=== PATIENT | female | born 1965 | race Hispanic/Latino ===

== ENCOUNTER 2018-01-29 12:33 | Outpatient (CLI) | payer OTHER | END 2018-01-29 12:34 | disposition home or self-care (01) | LOC: BICMAMMO 12:33 | PROVIDERS: ATTEND Internal Medicine | DX: Z12.31 Encounter for screening mammogram for malignant neoplasm of breast (principal) | CPT/HCPCS: 77063; 77067 ==

== ENCOUNTER 2018-06-06 13:39 | Outpatient (CLI) | payer OTHER ==
[2018-06-06 15:29] LABS: Hemoglobin 11.9 g/dL (12.0-16.0); Mean Corpuscular HGB CONC 33.8 g/dL (32.0-36.0); Mean Corpuscular Hemoglobin 35.3 pg (27.0-31.0); Mean Platelet Volume 7.4 fL (7.4-10.4); Platelet Count 176 thou/uL (130-400); Red Blood Cell (RBC) Count 3.35 mill/uL (4.20-5.40)
[2018-06-06 15:47] LABS: Anion Gap 14 mmol/L (10-20); BUN (Urea Nitrogen) 16 mg/dL (9.8-20.1); Calc. Creatinine Clearance 0 mL/min (70-130); Calcium 9.7 mg/dL (7.8-10.44); Carbon Dioxide 21 mmol/L (22-29); Chloride 108 mmol/L (98-107); Estimated GFR-MDRD 72; Glucose 89 mg/dL (70-105); Potassium 3.8 mmol/L (3.5-5.1); Sodium 139 mmol/L (136-145)
--- NOTE | 2018-06-09 17:43 | EKG ---
Test Reason : Blood Pressure : / mmHG Vent. Rate : 062 BPM Atrial Rate : 062 BPM P-R Int : 146 ms QRS Dur : 086 ms QT Int : 446 ms P-R-T Axes : 008 059 060 degrees QTc Int : 452 ms Normal sinus rhythm Cannot rule out Anterior infarct , age undetermined Abnormal ECG When compared with ECG of 12-AUG-2012 15:36, T wave inversion no longer evident in Lateral leads Confirmed by BHAKTI CRAWFORD (2) on 06/09/2018 5:43:23 PM Referred By: CLARISSE Confirmed By:BHAKTI CRAWFORD
== END 2018-06-06 13:40 | disposition home or self-care (01) ==
LOC: LABBT 13:39
PROVIDERS: ATTEND Neurological Surgery
DX: Z01.818 Encounter for other preprocedural examination (principal); M54.16 Radiculopathy, lumbar region
CPT/HCPCS: 80048; 85027; 93005; 93010

== ENCOUNTER 2018-06-12 05:40 | Day surgery (SDC) | payer OTHER ==
[2018-06-06 13:49] VITALS: BMI 35.9
[2018-06-12] MEDS ORDERED: Thrombin 5000 UNITS/5 ML VIAL ONE (06:36)
[2018-06-12] MEDS ORDERED: Bupivacaine HCl 0.5%/Epinephrine 1:200,000/PF 30 ml Vial ONE (06:36)
[2018-06-12] MEDS ORDERED: CEFAZOLIN/Water 2 GM/20 ML SYRINGE ONE ×2 (06:42→10:41)
[2018-06-12] MEDS ORDERED: Midazolam HCl 2 mg/2 ml Vial ONE (06:53)
[2018-06-12] MEDS ORDERED: Fentanyl 100 MCG/2 ML VIAL ONE ×3 (07:00→09:07)
[2018-06-12] MEDS ORDERED: SUGAMMADEX SODIUM 500 MG/5 ML VIAL ONE (08:09)
--- NOTE | 2018-06-12 09:35 | OP ---
DATE OF PROCEDURE: 06/12/2018 SURGEON: Morgan Kurtz M.D. APPLICATION SPEC: Pierre Dean PA-C. INDICATION: Pain. PREOPERATIVE DIAGNOSES: Lumbar stenosis with neurogenic claudication, lumbar radiculopathy. PROCEDURE: L5-S1 decompression. ANESTHESIA: General. PROCEDURE IN DETAIL: The patient was brought into the operating room and placed under general anesth esia. She was flipped from a supine to a prone position on the operating room table. A linear incis ion was planned over the L5-S1 segment. After prepping and draping and after an appropriate operativ e pause, the incision was created. The soft tissues were swept away from midline. Self-retaining re tractors were placed in the wound for optimal exposure. After confirming the appropriate level with C-arm fluoroscopy Adson rongeurs as well as 2, 3 and 4 mm Kerrisons used to perform decompressive the L5-S1 segment. There was a copious degree of epidural lipomatosis identified which was removed whic h was the main culprit in her stenosis. Medial facetectomies were performed bilaterally to decompres s the descending S1 nerve roots which were identified as were the exiting L5 nerve roots. After deco mpression, the wound was irrigated. Hemostasis was maintained throughout. The wound was then closed in anatomic layers and a pressure dressing was applied. There were no known procedural complication s.
[2018-06-12] MEDS ORDERED: Ketorolac Tromethamine 30 MG/ML VIAL ONE (15:09)
[2018-06-12] MEDS ORDERED: Lidocaine 1% PF 5 ML VIAL ONE (15:09)
[2018-06-12] MEDS ORDERED: PHENYLEPHRINE-NS 100 MCG/ML 10 ML SYRINGE ONE (15:09)
[2018-06-12] MEDS ORDERED: Ondansetron HCl/PF 4 MG/2 ML Vial ONE (15:09)
[2018-06-12] MEDS ORDERED: Dexamethasone 20 MG/5 ML VIAL ONE (15:09)
[2018-06-12] MEDS ORDERED: PROPOFOL 200 MG/20 ML VIAL ONE (15:09)
== END 2018-06-12 10:55 | disposition home or self-care (01) ==
LOC: SDC 05:40
PROVIDERS: ATTEND Neurological Surgery
PROC: 0ST20ZZ Resection of Lumbar Vertebral Disc, Open Approach (ICD-10-PCS; principal; 2018-06-12)
PROC: 01NB0ZZ Release Lumbar Nerve, Open Approach (ICD-10-PCS; principal; 2018-06-12)
PROC: 0SB20ZZ Excision of Lumbar Vertebral Disc, Open Approach (ICD-10-PCS; principal; 2018-06-12)
DX: E88.2 Lipomatosis, not elsewhere classified (principal); M48.062 Spinal stenosis, lumbar region with neurogenic claudication
CPT/HCPCS: 76001; 96374; 96375; J0670; J1100; J1885; J2001; J2250; J2405; J2704; J3010

== ENCOUNTER 2018-11-17 16:33 | Emergency (ER) | payer BC ==
[2018-11-17] MEDS ORDERED: Ondansetron ODT 4 MG TAB ONE (18:08)
[2018-11-17 18:30] LABS: #Eosinphils 0.1 thou/uL (0.0-0.7); #Lymphocytes 2.9 thou/uL (1.20-3.40); #Monocytes 0.5 thou/uL (0.11-0.59); #Neutrophils 2.9 thou/uL (1.40-6.50); %Basophils 0.4 % (0.0-1.0); %Eosinophils 1.9 % (0.0-10.0); %Lymphocytes 44.9 % (21.0-51.0); %Monocytes 7.2 % (0.0-10.0); %Neutrophils 45.6 % (42.0-75.0); Hemoglobin 11.4 g/dL (12.0-16.0); Mean Corpuscular HGB CONC 34.8 g/dL (32.0-36.0); Mean Corpuscular Hemoglobin 35.7 pg (27.0-31.0); Mean Platelet Volume 7.1 fL (7.4-10.4); Platelet Count 169 thou/uL (130-400); Red Blood Cell (RBC) Count 3.19 mill/uL (4.20-5.40); White Blood Cell (WBC) Count 6.4 thou/uL (4.8-10.8)
[2018-11-17 18:48] LABS: Anion Gap 13 mmol/L (10-20); BUN (Urea Nitrogen) 23 mg/dL (9.8-20.1); Calc. Creatinine Clearance 0 mL/min (70-130); Calcium 9.1 mg/dL (7.8-10.44); Carbon Dioxide 21 mmol/L (22-29); Chloride 111 mmol/L (98-107); Estimated GFR-MDRD 69; Glucose 129 mg/dL (70-105); Potassium 3.5 mmol/L (3.5-5.1); Sodium 141 mmol/L (136-145)
--- NOTE | 2018-11-17 19:12 | CT ---
CT BRAIN: HISTORY: Fall. Head injury. COMPARISON: 06/04/2005 TECHNIQUE: Noncontrast enhanced CT images of the brain obtained. Brain and bone windows obtained. FINDINGS: The brain is unremarkable. No evidence of intracranial masses, hemorrhages, strokes, or contusions s een. The ventricles are of normal size. The calvarium is unremarkable. IMPRESSION: Unremarkable CT brain. POS: [facility]
== END 2018-11-17 19:05 | disposition home or self-care (01) ==
LOC: ERS 16:33
DX: S06.0X0A Concussion without loss of consciousness, initial encounter (principal); F41.9 Anxiety disorder, unspecified; F31.9 Bipolar disorder, unspecified; F17.210 Nicotine dependence, cigarettes, uncomplicated; F17.200 Nicotine dependence, unspecified, uncomplicated; Z79.899 Other long term (current) drug therapy; Z79.82 Long term (current) use of aspirin; W19.XXXA Unspecified fall, initial encounter
CPT/HCPCS: 36415; 70450; 80048; 85025; 93005; Q0162

== ENCOUNTER 2019-02-25 10:42 | Outpatient (CLI) | payer BC ==
--- NOTE | 2019-02-25 11:39 | CT ---
CT abdomen and pelvis with IV and oral contrast HISTORY: Left lower quadrant pain. Constipation. COMPARISON: 01/23/2017. FINDINGS: The lung bases are clear. The liver, spleen, kidneys, adrenal glands, and pancreas have a n ormal CT appearance. No enlarged lymph nodes or free fluid. Mild calcification throughout the arterial structures. Degenerative changes lumbar spine. Large amount of stool throughout the colon. No wall thickening or other signs of inflammation. No sig nificant diverticula are apparent. IMPRESSION: Constipation. No acute abnormalities are demonstrated.
== END 2019-02-25 10:43 | disposition home or self-care (01) ==
LOC: BICCT 10:42
PROVIDERS: ATTEND Physician Assistant Medical
DX: R10.32 Left lower quadrant pain (principal); K59.09 Other constipation
CPT/HCPCS: 74177

== ENCOUNTER 2019-06-22 21:02 | Emergency (ER) | payer BC ==
[~2019-06-22 21:02] MED LIST: ISOVUE-370 76%-LOCM 1 ML ONE
[2019-06-22 21:29] LABS: #Basophils 0.1 thou/uL (0.0-0.2); #Eosinphils 0.2 thou/uL (0.0-0.7); #Lymphocytes 3.2 thou/uL (1.20-3.40); #Monocytes 0.5 thou/uL (0.11-0.59); #Neutrophils 5.5 thou/uL (1.40-6.50); %Basophils 0.5 % (0.0-1.0); %Eosinophils 1.6 % (0.0-10.0); %Monocytes 5.4 % (0.0-10.0); %Neutrophils 58.5 % (42.0-75.0); Hemoglobin 12.4 g/dL (12.0-16.0); Mean Corpuscular Hemoglobin 34.5 pg (27.0-31.0); Mean Platelet Volume 6.8 fL (7.4-10.4); Platelet Count 172 thou/uL (130-400); RBC Distribution Width 11.9 % (11.5-14.5); Red Blood Cell (RBC) Count 3.59 mill/uL (4.20-5.40); White Blood Cell (WBC) Count 9.4 thou/uL (4.8-10.8)
--- NOTE | 2019-06-22 21:47 | RAD ---
PORTABLE CHEST: History: Chest pain. FINDINGS: Lungs are clear. Heart and mediastinum unremarkable. Post op sternotomy changes are noted. A Mediport catheter appears adequately positioned. IMPRESSION: No acute finding. POS: [facility]
[2019-06-22 21:52] LABS: ALT (SGPT) 27 U/L (8-55); AST (SGOT) 19 U/L (5-34); Albumin 3.9 g/dL (3.5-5.0); Alkaline Phosphatase 122 U/L (40-110); Anion Gap 12 mmol/L (10-20); BUN (Urea Nitrogen) 23 mg/dL (9.8-20.1); Bilirubin, Total 0.2 mg/dL (0.2-1.2); Calc. Creatinine Clearance 0 mL/min (70-130); Calcium 9.2 mg/dL (7.8-10.44); Carbon Dioxide 23 mmol/L (22-29); Chloride 108 mmol/L (98-107); Estimated GFR-MDRD 57; Globulin 3.7 g/dL (2.4-3.5); Glucose 120 mg/dL (70-105); Potassium 3.9 mmol/L (3.5-5.1); Protein, Total 7.6 g/dL (6.0-8.3); Sodium 139 mmol/L (136-145)
[2019-06-22] MEDS ORDERED: Nitroglycerin 0.4 MG TAB 1 EACH ONE (22:25)
[2019-06-22] MEDS ORDERED: Aspirin Chewable 81 MG TAB ONE ×2 (22:25→22:26)
[2019-06-22] MEDS ORDERED: Acetaminophen 325 MG TAB ONE (23:30)
[2019-06-23 00:20] LABS: Troponin I Less than 0.010 ng/mL (< 0.028)
--- NOTE | 2019-06-23 08:01 | CT ---
PRELIMINARY REPORT/[facility]/EMERGENCY AFTER HOURS PROCEDURE: PROCEDURE INFORMATION: Exam: CT Angiography Chest With Contrast Exam date and time: 06/22/2019 11:53 PM Clinical history: 53 years old, female; Patient HX: Er20; 53 presents to ED with C/O chest pain, onse t 1 hour ago. Reports that her pain decreases when she presses on it. Pmhx of mi, and patient had a c abg done in 2011. Denies recent surgeries TECHNIQUE: Imaging protocol: Computed tomographic angiography of the chest with intravenous contrast. 3D rendering: MIP reconstructed images were created and reviewed. COMPARISON: No relevant prior studies available. FINDINGS: Pulmonary arteries: Normal. No pulmonary emboli. Aorta: Unremarkable. No aortic aneurysm. No aortic dissection. Lungs: Unremarkable. No consolidation. No masses. Pleural space: Unremarkable. No pneumothorax. No pleural effusion. Heart: There are sternal wires consistent with previous sternotomy incision and evidence of prior CAB G. The heart demonstrates diffuse enlargement. There is coronary artery calcification. Lymph nodes: Unremarkable. No enlarged lymph nodes. Bones/joints: Unremarkable. No acute fracture. Soft tissues: Unremarkable. IMPRESSION: No acute abnormality. Thank you for allowing us to participate in the care of your patient. Dictated and Authenticated by: Monie Marquez MD 06/23/2019 12:32 AM Central Time ([place] & [place]) FINAL REPORT CT PULMONARY ANGIOGRAM WITHOUT CONTRAST AND 3D POSTPROCESSING: I agree with the preliminary report given by Dr. Monie Marquez of [facility]. POS: OFF
== END 2019-06-23 00:56 | disposition home or self-care (01) ==
LOC: ERS 21:02
DX: R07.89 Other chest pain (principal); M79.7 Fibromyalgia; F41.9 Anxiety disorder, unspecified; F31.9 Bipolar disorder, unspecified; Z79.82 Long term (current) use of aspirin; Z79.52 Long term (current) use of systemic steroids; Z79.899 Other long term (current) drug therapy
CPT/HCPCS: 36415; 71045; 71275; 80053; 84484; 85025; 85379; 93005; Q9966

== ENCOUNTER 2019-07-24 09:06 | Outpatient (CLI) | payer BC ==
--- NOTE | 2019-07-24 09:46 | MMO ---
Bilateral MAMMO Bilat Screen [facility]. CLINICAL HISTORY: Patient is 53 years old and is seen for screening. The patient has no family history of breast cancer. The patient has a history of ovarian cancer at age 50. VIEWS: The views performed were: bilateral craniocaudal with tomosynthesis and bilateral mediolateral oblique with tomosynthesis. FILMS COMPARED: The present examination has been compared to prior imaging studies performed at [facility] on 11/23/2015 and 01/29/2018. This study has been interpreted with the assistance of computer-aided detection. MAMMOGRAM FINDINGS: There are scattered fibroglandular densities. There are no suspicious masses, suspicious calcifications, or new areas of architectural distortion. IMPRESSION: THERE IS NO MAMMOGRAPHIC EVIDENCE OF MALIGNANCY. A ROUTINE FOLLOW-UP MAMMOGRAM IN 1 YEAR IS RECOMMENDED. THE RESULTS OF THIS EXAM WERE SENT TO THE PATIENT. ACR BI-RADS Category 1 - Negative MAMMOGRAPHY NOTE: 1. A negative mammogram report should not delay a biopsy if a dominant of clinically suspicious mass is present. 2. Approximately 10% to 15% of breast cancers are not detected by mammography. 3. Adenosis and dense breasts may obscure an underlying neoplasm. Reported by: Dyan FAYE Electonically Signed: [id number]
== END 2019-07-24 09:07 | disposition home or self-care (01) ==
LOC: BICMAMMO 09:06
PROVIDERS: ATTEND Internal Medicine
DX: Z12.31 Encounter for screening mammogram for malignant neoplasm of breast (principal); Z85.43 Personal history of malignant neoplasm of ovary
CPT/HCPCS: 77063; 77067

== ENCOUNTER 2020-05-19 08:02 | Outpatient (CLI) | payer BC ==
--- NOTE | 2020-05-19 09:06 | CT ---
CT ABDOMEN AND PELVIS WITH IV CONTRAST 05/19/2020 CLINICAL INFORMATION: Ovarian cancer. Rising CEA 125. History of prior hysterectomy and chemotherapy. COMPARISON: 02/25/2019 Technique: Multiple contiguous axial CT images are obtained through the abdomen and pelvis with IV contrast. Cor onal reformatted images are provided. FINDINGS: Lower Chest: Minimal atelectasis is present at each lung base. No pulmonary nodule, mass, or pleural effusion is identified. Vessels: Vascular calcifications are seen in the abdominal aorta. Abdomen: Portal vein:Patent Gallbladder: Within normal limits for CT imaging. Liver: within normal limits. Spleen: within normal limits. Pancreas: within normal limits. Adrenals: within normal limits. Kidneys: within normal limits. Bowel: Colonic diverticulosis involving sigmoid colon. Loops of small bowel are normal in caliber. Appendix: The appendix is visualized and normal in caliber. Peritoneum: No ascites or free air; no fluid collection. Mesentery and Retroperitoneum: No enlarged mesenteric or retroperitoneal lymph nodes. Abdominal Wall: Small fat-containing supraumbilical hernia. Pelvis: Reproductive Organs: Evidence of hysterectomy. Bladder: Decompressed and not well evaluated. Bones: Degenerative changes are present, but no suspicious lytic or sclerotic osseous lesions are edwina ntified. IMPRESSION: 1. No CT findings to suggest metastatic disease. 2. Hysterectomy. 3. Colonic diverticulosis.
[2020-05-19] MEDS ORDERED: Iopamidol-370 76% 500 ML 1 ML ONE (13:30)
== END 2020-05-19 08:03 | disposition home or self-care (01) ==
LOC: BICCT 08:02
PROVIDERS: ATTEND Internal Medicine Hematology & Oncology
DX: C56.2 Malignant neoplasm of left ovary (principal); R97.1 Elevated cancer antigen 125 [CA 125]; Z90.710 Acquired absence of both cervix and uterus; K57.30 Diverticulosis of large intestine without perforation or abscess without bleeding
CPT/HCPCS: 74177; Q9967

== ENCOUNTER 2020-08-01 05:02 | Emergency (ER) | payer BC ==
--- NOTE | 2020-08-01 10:12 | CT ---
CT BRAIN WITHOUT CONTRAST: INDICATIONS: History of fall with possible head injury and intoxication. COMPARISON: Prior CT brain dated 11/17/2018. FINDINGS: Mild chronic small vessel white matter ischemic change is stable. The septum pellucidum and third masha tricle are midline. No acute infarct, hemorrhage or hydrocephalus is present. The mastoid air cells a re clear. Defect involving the left medial orbital wall is stable. The skull is intact. There is a co ntusion involving the right parietal scalp. IMPRESSION: No acute intracranial abnormality. POS: [facility]
--- NOTE | 2020-08-01 10:13 | CT ---
CT CERVICAL SPINE WITHOUT CONTRAST: INDICATIONS: Fall with neck injury. COMPARISON: None. FINDINGS: There is moderate multilevel cervical spondylosis. No acute fracture or subluxation is evident. The c raniocervical junction appears within normal limits. The lung apices are clear. There is a right ches t wall port in place. The prevertebral soft tissues appear within normal limits. IMPRESSION: 1. No acute fracture or subluxation demonstrated. 2. Moderate cervical spondylosis. POS: [facility]
== END 2020-08-01 08:39 | disposition home or self-care (01) ==
LOC: ERS 05:02
DX: S09.90XA Unspecified injury of head, initial encounter (principal); F10.129 Alcohol abuse with intoxication, unspecified; Z79.899 Other long term (current) drug therapy; Z79.82 Long term (current) use of aspirin; F31.9 Bipolar disorder, unspecified; F41.9 Anxiety disorder, unspecified; Z87.891 Personal history of nicotine dependence; W01.0XXA Fall on same level from slipping, tripping and stumbling without subsequent striking against object, initial encounter
CPT/HCPCS: 70450; 72125

== ENCOUNTER 2020-11-30 10:45 | Outpatient (CLI) | payer BC | END 2020-11-30 10:46 | disposition home or self-care (01) | LOC: BICMAMMO 10:45 | PROVIDERS: ATTEND Internal Medicine | DX: Z12.31 Encounter for screening mammogram for malignant neoplasm of breast (principal); N64.89 Other specified disorders of breast; Z85.43 Personal history of malignant neoplasm of ovary | CPT/HCPCS: 77063; 77067 ==

== ENCOUNTER 2020-12-01 10:24 | Outpatient (CLI) | payer BC ==
[~2020-12-01 10:24] MED LIST changes: -ISOVUE-370 76%-LOCM 1 ML ONE; +Iopamidol-370 76% 500 ML 1 ML ONE
== END 2020-12-01 10:25 | disposition home or self-care (01) ==
LOC: BICCT 10:24
PROVIDERS: ATTEND Internal Medicine Hematology & Oncology
DX: C56.2 Malignant neoplasm of left ovary (principal); R97.1 Elevated cancer antigen 125 [CA 125]; R59.0 Localized enlarged lymph nodes
CPT/HCPCS: 74177; Q9967

== ENCOUNTER 2020-12-13 10:50 | Outpatient (CLI) | payer BC | END 2020-12-13 10:51 | disposition home or self-care (01) | LOC: BICMAMMO 10:50 | PROVIDERS: ATTEND Internal Medicine | DX: R92.2 Inconclusive mammogram (principal) | CPT/HCPCS: G0279 ==

== ENCOUNTER 2021-01-21 10:33 | Day surgery (SDC) | payer BC ==
[2021-01-21] MEDS ORDERED: Sodium Chloride 0.9% 30 ML ONE (11:10)
[2021-01-21] MEDS ORDERED: diphenhydrAMINE 25 MG CAP PO SCH (12:00)
[2021-01-21] MEDS ORDERED: Acetaminophen 500 MG TAB PO SCH (12:00)
[2021-01-21 13:22] VITALS: BP 136/72; TEMP 98
== END 2021-01-21 13:23 | disposition home or self-care (01) ==
LOC: ONC/OP 10:33
PROVIDERS: ATTEND Internal Medicine Hematology & Oncology
PROC: 30233R1 Transfusion of Nonautologous Platelets into Peripheral Vein, Percutaneous Approach (ICD-10-PCS; principal; 2021-01-21)
DX: D69.6 Thrombocytopenia, unspecified (principal); D64.9 Anemia, unspecified; Z88.8 Allergy status to other drugs, medicaments and biological substances
CPT/HCPCS: 36430; 86850; 86900; 86901; J1642; P9035

== ENCOUNTER 2021-02-03 08:28 | Day surgery (SDC) | payer BC ==
[2021-02-03] MEDS ORDERED: Sodium Chloride 0.9% 20 ML ONE (09:13)
[2021-02-03] MEDS ORDERED: Acetaminophen 500 MG TAB PO PRN (09:13)
[2021-02-03] MEDS ORDERED: diphenhydrAMINE 25 MG CAP PO PRN (09:13)
[2021-02-03 14:32] VITALS: BP 142/69; TEMP 97.6
== END 2021-02-03 14:32 | disposition home or self-care (01) ==
LOC: ONC/OP 08:28
PROVIDERS: ATTEND Internal Medicine Hematology & Oncology
PROC: 30233N1 Transfusion of Nonautologous Red Blood Cells into Peripheral Vein, Percutaneous Approach (ICD-10-PCS; principal; 2021-02-03)
DX: D64.9 Anemia, unspecified (principal); D69.6 Thrombocytopenia, unspecified; Z88.8 Allergy status to other drugs, medicaments and biological substances
CPT/HCPCS: 36430; 86850; 86900; 86901; J1642; P9016

== ENCOUNTER 2021-03-15 08:17 | Day surgery (SDC) | payer BC ==
[2021-03-15] MEDS ORDERED: Acetaminophen 500 MG TAB PO SCH (08:45)
[2021-03-15] MEDS ORDERED: diphenhydrAMINE 25 MG CAP PO SCH (08:45)
[2021-03-15] MEDS ORDERED: Sodium Chloride 0.9% 20 ML ONE (09:10)
[2021-03-15 13:28] VITALS: BP 175/88; TEMP 97.7
== END 2021-03-15 13:28 | disposition home or self-care (01) ==
LOC: ONC/OP 08:17
PROVIDERS: ATTEND Internal Medicine Hematology & Oncology
PROC: 30233N1 Transfusion of Nonautologous Red Blood Cells into Peripheral Vein, Percutaneous Approach (ICD-10-PCS; principal; 2021-03-15)
DX: D64.9 Anemia, unspecified (principal); Z88.8 Allergy status to other drugs, medicaments and biological substances
CPT/HCPCS: 36430; 86850; 86900; 86901; J1642; P9016; Q0163

== ENCOUNTER 2021-04-18 13:54 | Inpatient (IN) | payer BC ==
[2021-04-18] MEDS ORDERED: Famotidine/PF 20 mg/2ml Vial ONE (14:00)
[2021-04-18] MEDS ORDERED: EPINEPHrine 1 MG/ML VIAL ONE (14:00)
[2021-04-18 14:35] LABS: Hemoglobin 8.5 g/dL (12.0-16.0); Mean Corpuscular HGB CONC 35.5 g/dL (32.0-36.0); Mean Corpuscular Hemoglobin 35.4 pg (27.0-31.0); Mean Corpuscular Volume 99.7 fL (78.0-98.0); Mean Platelet Volume 9.1 fL (7.4-10.4); Platelet Count 59 thou/uL (130-400); RBC Distribution Width 19.1 % (11.5-14.5); White Blood Cell (WBC) Count 4.2 thou/uL (4.8-10.8)
[2021-04-18 14:53] LABS: Anisocytosis SLIGHT = 6-15 cells (100X) (0-5/hpf); Band 18 % (5-11); Lymphocytes 54 % (21-51); MDiff Complete? YES; Macrocytosis SLIGHT = 6-15 cells (100X) (0-5/hpf); Monocytes 3 % (0-10); Neutrophil 11 % (42-75); Platelet Morphology Comment Appears Decreased; Polychromasia MODERATE = 3-4 cells (100X) (0-2/hpf); Reactive Lymphocytes 14 % (0-10)
[2021-04-18 14:59] LABS: ALT (SGPT) 26 U/L (8-55); AST (SGOT) 25 U/L (5-34); Albumin 3.1 g/dL (3.5-5.0); Alkaline Phosphatase 100 U/L (40-110); Anion Gap 11 mmol/L (10-20); BUN (Urea Nitrogen) 22 mg/dL (9.8-20.1); Bilirubin, Total 0.4 mg/dL (0.2-1.2); CK (CPK) 71 U/L (29-168); Calc. Creatinine Clearance 0 mL/min (70-130); Calcium 7.8 mg/dL (7.8-10.44); Carbon Dioxide 17 mmol/L (22-29); Chloride 112 mmol/L (98-107); Globulin 3.8 g/dL (2.4-3.5); Glucose 122 mg/dL (70-105); Lipase 79 U/L (8-78); Potassium 3.6 mmol/L (3.5-5.1); Protein, Total 6.9 g/dL (6.0-8.3); Sodium 136 mmol/L (136-145)
[2021-04-18] MEDS ORDERED: EPINEPHrine 1 mg/ml MDV (1ml Charge) IM PRN (16:14)
[2021-04-18] MEDS: Famotidine 20 MG TAB PO SCH ×2 (17:56→20:22)
[2021-04-18] MEDS: Sodium Chloride 0.9% 1,000 ML IV SCH (17:56)
[2021-04-18 19:23] VITALS: BMI 38.0
[2021-04-18] MEDS ORDERED: Dexamethasone 10 MG in Sodium Chloride 0.9% 50 ML IVPB SCH (20:00)
[2021-04-18] MEDS ORDERED: Acetaminophen 325 MG TAB PO PRN (20:04)
[2021-04-18] MEDS ORDERED: Atorvastatin Calcium 20 MG TAB PO SCH (21:45)
[2021-04-19] MEDS: Sodium Chloride 0.9% 1,000 ML IV SCH (07:12)
[2021-04-19 08:19] LABS: SARS-CoV-2 PCR by NAA Not Detected (NotDetected)
[2021-04-19 08:36] LABS: #Lymphocytes 1.4 thou/uL (1.20-3.40); #Monocytes 0.4 thou/uL (0.11-0.59); #Neutrophils 3.5 thou/uL (1.40-6.50); %Monocytes 7.9 % (0.0-10.0); %Neutrophils 66.1 % (42.0-75.0); Mean Corpuscular HGB CONC 34.3 g/dL (32.0-36.0); Mean Corpuscular Hemoglobin 34.6 pg (27.0-31.0); Mean Platelet Volume 8.7 fL (7.4-10.4); Platelet Count 56 thou/uL (130-400); RBC Distribution Width 19.2 % (11.5-14.5); Red Blood Cell (RBC) Count 2.02 mill/uL (4.20-5.40); White Blood Cell (WBC) Count 5.3 thou/uL (4.8-10.8)
[2021-04-19] MEDS ORDERED: Acetaminophen 500 MG TAB PO PRN (09:19)
[2021-04-19] MEDS ORDERED: diphenhydrAMINE 25 MG CAP PO PRN (09:20)
[2021-04-19] MEDS: Famotidine 20 MG TAB PO SCH ×2 (09:45→21:14)
[2021-04-19] MEDS: traMADol HCl 50 MG TAB PO PRN ×2 (14:52→21:08)
[2021-04-19] MEDS ORDERED: Lorazepam 2 MG/ML VIAL SLOW IVP PRN (14:57)
[2021-04-19] MEDS ORDERED: Dexamethasone 10 MG in Sodium Chloride 0.9% 50 ML IVPB SCH (15:00)
[2021-04-19] MEDS ORDERED: Furosemide 40 MG/4 ML VIAL SLOW IVP SCH (15:30)
[2021-04-19 15:52] LABS: #Lymphocytes 1.8 thou/uL (1.20-3.40); #Monocytes 0.8 thou/uL (0.11-0.59); %Basophils 0.2 % (0.0-1.0); %Eosinophils 0.1 % (0.0-10.0); %Lymphocytes 26.5 % (21.0-51.0); %Monocytes 11.9 % (0.0-10.0); %Neutrophils 61.3 % (42.0-75.0); Hemoglobin 9.6 g/dL (12.0-16.0); Mean Corpuscular HGB CONC 35.8 g/dL (32.0-36.0); Mean Corpuscular Hemoglobin 35.1 pg (27.0-31.0); Mean Corpuscular Volume 97.9 fL (78.0-98.0); Mean Platelet Volume 8.8 fL (7.4-10.4); Platelet Count 50 thou/uL (130-400); Red Blood Cell (RBC) Count 2.73 mill/uL (4.20-5.40); White Blood Cell (WBC) Count 6.6 thou/uL (4.8-10.8)
[2021-04-19 15:59] LABS: Bacteria/HPF None Seen HPF (None Seen); Bilirubin Negative (Negative); Blood, Urine Negative (Negative); Clarity Clear (Clear); Glucose, Urine (Dipstick) Normal (Negative); Ketone, Urine Negative (Negative); Leukocyte Negative Leu/uL (Negative); Nitrite Negative (Negative); Protein, Urine (Dipstick) Negative (Neg-Trace); RBC/HPF 0-3 HPF (0-3); Squamous Epithelial 0-3 HPF (0-3); Urobilinogen Normal mg/dL (Less than 2); WBC/HPF 0-3 HPF (0-3)
[2021-04-19 16:03] LABS: Urine Culture Reflex No No
[2021-04-19] MEDS ORDERED: Atorvastatin Calcium 20 MG TAB PO SCH (21:00)
[2021-04-19] MEDS ORDERED: Meloxicam 15 MG TAB PO SCH (21:00)
[2021-04-19] MEDS ORDERED: Aspirin Chewable 81 MG TAB PO SCH (21:00)
[2021-04-19] MEDS ORDERED: Non-Formulary Item 1 EACH (Carvedilol [Carvedilol] 12.5 MG Tablet) PO SCH (21:00)
[2021-04-19] MEDS ORDERED: Topiramate 100 MG TAB PO SCH (21:00)
[2021-04-19] MEDS: Carvedilol 6.25 MG TAB PO SCH (21:14)
[2021-04-20] MEDS: Famotidine 20 MG TAB PO SCH (09:21)
[2021-04-20] MEDS: Carvedilol 6.25 MG TAB PO SCH (09:21)
[2021-04-20 10:59] LABS: #Lymphocytes 1.7 thou/uL (1.20-3.40); #Monocytes 0.2 thou/uL (0.11-0.59); #Neutrophils 3.5 thou/uL (1.40-6.50); %Basophils 0.6 % (0.0-1.0); %Eosinophils 0.1 % (0.0-10.0); %Lymphocytes 32.3 % (21.0-51.0); %Monocytes 2.7 % (0.0-10.0); %Neutrophils 64.3 % (42.0-75.0); Hemoglobin 10.4 g/dL (12.0-16.0); Mean Corpuscular HGB CONC 35.3 g/dL (32.0-36.0); Mean Corpuscular Hemoglobin 34.8 pg (27.0-31.0); Mean Corpuscular Volume 98.5 fL (78.0-98.0); Mean Platelet Volume 8.6 fL (7.4-10.4); Platelet Count 51 thou/uL (130-400); RBC Distribution Width 17.8 % (11.5-14.5); White Blood Cell (WBC) Count 5.4 thou/uL (4.8-10.8)
[2021-04-20 11:13] LABS: Anion Gap 12 mmol/L (10-20); BUN (Urea Nitrogen) 23 mg/dL (9.8-20.1); Calc. Creatinine Clearance 105 mL/min (70-130); Calcium 8.8 mg/dL (7.8-10.44); Carbon Dioxide 19 mmol/L (22-29); Chloride 110 mmol/L (98-107); Glucose 139 mg/dL (70-105); Potassium 4.2 mmol/L (3.5-5.1); Sodium 137 mmol/L (136-145)
[2021-04-20 12:32] VITALS: TEMP 97.5
[2021-04-20 15:44] VITALS: BP 126/69
== END 2021-04-20 17:55 | disposition home or self-care (01) | DRG 915 ==
LOC: ERS 13:54 → ONC 15:54 → OBSVTOIN 04-19 15:19 → 2NO 04-19 17:33
PROVIDERS: ADMIT Internal Medicine; ATTEND Internal Medicine
PROC: 30233N1 Transfusion of Nonautologous Red Blood Cells into Peripheral Vein, Percutaneous Approach (ICD-10-PCS; principal; 2021-04-19)
DX: T88.6XXA Anaphylactic reaction due to adverse effect of correct drug or medicament properly administered, initial encounter (principal); I46.9 Cardiac arrest, cause unspecified; D61.818 Other pancytopenia; I50.22 Chronic systolic (congestive) heart failure; C56.9 Malignant neoplasm of unspecified ovary; T45.1X5A Adverse effect of antineoplastic and immunosuppressive drugs, initial encounter; F31.9 Bipolar disorder, unspecified; I25.10 Atherosclerotic heart disease of native coronary artery without angina pectoris; F41.9 Anxiety disorder, unspecified; Z20.822 Contact with and (suspected) exposure to COVID-19; R06.03 Acute respiratory distress; E87.71 Transfusion associated circulatory overload; Z95.1 Presence of aortocoronary bypass graft; Z88.8 Allergy status to other drugs, medicaments and biological substances; Z79.82 Long term (current) use of aspirin; Z79.899 Other long term (current) drug therapy; Z90.710 Acquired absence of both cervix and uterus; Z98.51 Tubal ligation status; Z87.891 Personal history of nicotine dependence
CPT/HCPCS: 36415; 36430; 71045; 71275; 80048; 80053; 81001; 82248; 82550; 83615; 83690; 83880; 84100; 84484; 84550; 85025; 85379; 86304; 86850; 86900; 86901; 93005; 93010; 93306; 96372; 96374; 96375; G0378; J0171; J1100; J1642; J1940; P9016; Q9967; S0028; U0003; U0005

== ENCOUNTER 2021-05-13 12:31 | Day surgery (SDC) | payer BC ==
[2021-05-13] MEDS ORDERED: Acetaminophen 500 MG TAB PO SCH (13:00)
[2021-05-13] MEDS: diphenhydrAMINE 25 MG CAP PO SCH ×2 (13:31→13:33)
[2021-05-13 16:01] VITALS: BP 121/70; TEMP 97
== END 2021-05-13 16:01 | disposition home or self-care (01) ==
LOC: ONC/OP 12:31
PROVIDERS: ATTEND Internal Medicine Hematology & Oncology
PROC: 30233N1 Transfusion of Nonautologous Red Blood Cells into Peripheral Vein, Percutaneous Approach (ICD-10-PCS; principal; 2021-05-13)
DX: D64.9 Anemia, unspecified (principal); D69.6 Thrombocytopenia, unspecified; Z88.8 Allergy status to other drugs, medicaments and biological substances
CPT/HCPCS: 36430; 86850; 86900; 86901; P9016

== ENCOUNTER 2021-06-06 10:18 | Day surgery (SDC) | payer BC ==
[2021-06-06] MEDS ORDERED: Acetaminophen 500 MG TAB PO PRN (10:47)
[2021-06-06] MEDS ORDERED: diphenhydrAMINE 25 MG CAP PO PRN (10:49)
[2021-06-06] MEDS ORDERED: Sodium Chloride 0.9% 20 ML ONE (10:52)
[2021-06-06 13:43] VITALS: BP 144/71; TEMP 98.1
== END 2021-06-06 13:45 | disposition home or self-care (01) ==
LOC: ONC/OP 10:18
PROVIDERS: ATTEND Internal Medicine Hematology & Oncology
PROC: 30233N1 Transfusion of Nonautologous Red Blood Cells into Peripheral Vein, Percutaneous Approach (ICD-10-PCS; principal; 2021-06-06)
DX: D64.9 Anemia, unspecified (principal); D69.6 Thrombocytopenia, unspecified; Z88.8 Allergy status to other drugs, medicaments and biological substances
CPT/HCPCS: 36430; 86850; 86900; 86901; J1642; P9016

== ENCOUNTER 2021-07-07 08:38 | Outpatient (CLI) | payer BC | END 2021-07-07 08:39 | disposition home or self-care (01) | LOC: BICCT 08:38 → CT 08:39 | PROVIDERS: ATTEND Internal Medicine Hematology & Oncology | DX: C56.2 Malignant neoplasm of left ovary (principal) | CPT/HCPCS: 74177; 82565 ==

== ENCOUNTER 2021-07-15 09:43 | Day surgery (SDC) | payer BC ==
[2021-07-15] MEDS ORDERED: diphenhydrAMINE 25 MG CAP PO SCH (10:00)
[2021-07-15] MEDS ORDERED: Acetaminophen 500 MG TAB PO SCH (10:00)
[2021-07-15] MEDS ORDERED: Sodium Chloride 0.9% 20 ML ONE (10:28)
[2021-07-15 13:27] VITALS: BP 134/61; TEMP 98.1
== END 2021-07-15 13:41 | disposition home or self-care (01) ==
LOC: ONC/OP 09:43
PROVIDERS: ATTEND Internal Medicine Hematology & Oncology
PROC: 30233N1 Transfusion of Nonautologous Red Blood Cells into Peripheral Vein, Percutaneous Approach (ICD-10-PCS; principal; 2021-07-15)
DX: D64.9 Anemia, unspecified (principal); D69.6 Thrombocytopenia, unspecified; Z88.8 Allergy status to other drugs, medicaments and biological substances
CPT/HCPCS: 36430; 86850; 86900; 86901; J1642; P9016

== ENCOUNTER 2021-09-07 16:10 | Observation (INO) | payer BC ==
[2021-09-07] MEDS ORDERED: Lidocaine 1% (PF) 30 ML VIAL ONE (16:44)
[2021-09-07 16:58] LABS: #Lymphocytes 1.7 thou/uL (1.20-3.40); #Monocytes 0.4 thou/uL (0.11-0.59); #Neutrophils 4.3 thou/uL (1.40-6.50); %Basophils 0.4 % (0.0-1.0); %Eosinophils 0.7 % (0.0-10.0); %Monocytes 6.7 % (0.0-10.0); %Neutrophils 66.2 % (42.0-75.0); Hemoglobin 11.5 g/dL (12.0-16.0); Mean Corpuscular HGB CONC 35.5 g/dL (32.0-36.0); Mean Corpuscular Hemoglobin 39.7 pg (27.0-31.0); Mean Platelet Volume 7.9 fL (7.4-10.4); Platelet Count 81 thou/uL (130-400); RBC Distribution Width 18.2 % (11.5-14.5); Red Blood Cell (RBC) Count 2.91 mill/uL (4.20-5.40); White Blood Cell (WBC) Count 6.5 thou/uL (4.8-10.8)
[2021-09-07] MEDS ORDERED: Acetaminophen 500 MG TAB ONE (17:20)
[2021-09-07] MEDS ORDERED: Cefepime 2 GM VIAL ONE (17:21)
[2021-09-07] MEDS ORDERED: Vancomycin 1 GM/200 ML BAG ONE (17:21)
[2021-09-07 17:26] LABS: ALT (SGPT) 39 U/L (8-55); AST (SGOT) 51 U/L (5-34); Albumin 4.2 g/dL (3.5-5.0); Alkaline Phosphatase 90 U/L (40-110); Anion Gap 16 mmol/L (10-20); BUN (Urea Nitrogen) 18 mg/dL (9.8-20.1); Bilirubin, Total 0.6 mg/dL (0.2-1.2); Calc. Creatinine Clearance 0 mL/min (70-130); Calcium 9.3 mg/dL (7.8-10.44); Carbon Dioxide 18 mmol/L (22-29); Chloride 108 mmol/L (98-107); Globulin 4.9 g/dL (2.4-3.5); Glucose 101 mg/dL (70-105); Potassium 4.8 mmol/L (3.5-5.1); Protein, Total 9.1 g/dL (6.0-8.3); Sodium 137 mmol/L (136-145)
[2021-09-07 17:27] LABS: Prothrombin Time 13.5 sec (12.0-14.7)
[2021-09-07 17:28] LABS: PTT 29.5 sec (22.9-36.1)
[2021-09-07] MEDS ORDERED: Ondansetron ODT 4 MG TAB PO PRN (19:13)
[2021-09-07] MEDS ORDERED: Ondansetron PF 4 MG/2 ML Vial IVP PRN (19:13)
[2021-09-07] MEDS ORDERED: Sodium Chloride 0.9% 1,000 ML IV SCH (19:15)
[2021-09-07] MEDS ORDERED: Electrolyte Replacement Protocol 1 EACH FS SCH (19:15)
[2021-09-07] MEDS ORDERED: Morphine 4 MG/ML VIAL SLOW IVP PRN (19:26)
[2021-09-07] MEDS ORDERED: Atorvastatin Calcium 20 MG TAB PO SCH (21:00)
[2021-09-07 21:41] VITALS: BMI 32.8
[2021-09-07] MEDS ORDERED: Melatonin 3 MG TAB PO SCH (22:00)
[2021-09-07] MEDS: Carvedilol 6.25 MG TAB PO SCH (22:38)
[2021-09-08] MEDS: traMADol HCl 50 MG TAB PO PRN ×2 (04:12→16:09)
[2021-09-08] MEDS ORDERED: Cefepime 2 GM in Sodium Chloride 0.9% 100 ML IVPB SCH ×2 (06:00→14:00)
[2021-09-08 06:32] LABS: Anion Gap 10 mmol/L (10-20); BUN (Urea Nitrogen) 15 mg/dL (9.8-20.1); Calc. Creatinine Clearance 100 mL/min (70-130); Carbon Dioxide 17 mmol/L (22-29); Chloride 111 mmol/L (98-107); Glucose 109 mg/dL (70-105); Magnesium 1.6 mg/dL (1.6-2.6); Potassium 3.7 mmol/L (3.5-5.1); Sodium 134 mmol/L (136-145)
[2021-09-08] MEDS ORDERED: Magnesium 2 GM/50 ML 2 GM in Premix Bag 1 BAG IVPB SCH (07:15)
[2021-09-08 08:58] LABS: #Lymphocytes 1.7 thou/uL (1.20-3.40); #Monocytes 0.5 thou/uL (0.11-0.59); #Neutrophils 2.6 thou/uL (1.40-6.50); %Basophils 0.3 % (0.0-1.0); %Eosinophils 0.9 % (0.0-10.0); %Lymphocytes 35.9 % (21.0-51.0); %Monocytes 9.4 % (0.0-10.0); %Neutrophils 53.6 % (42.0-75.0); Hemoglobin 8.8 g/dL (12.0-16.0); MDiff Complete? YES; Macrocytosis SLIGHT = 6-15 cells (100X) (0-5/hpf); Mean Corpuscular HGB CONC 33.3 g/dL (32.0-36.0); Mean Corpuscular Hemoglobin 38.1 pg (27.0-31.0); Mean Platelet Volume 7.8 fL (7.4-10.4); Platelet Count 61 thou/uL (130-400); Platelet Morphology Comment Appears Decreased; Polychromasia SLIGHT = 2-3 cells (100X) (0-2/hpf); RBC Distribution Width 18.4 % (11.5-14.5); White Blood Cell (WBC) Count 4.8 thou/uL (4.8-10.8)
[2021-09-08] MEDS ORDERED: Vancomycin 1 GM in Premix Bag 1 BAG IVPB SCH (09:00)
[2021-09-08] MEDS: Carvedilol 6.25 MG TAB PO SCH (09:03)
[2021-09-08] MEDS ORDERED: Vancomycin HCl 1.5 GM in Sodium Chloride 0.9% 250 ML 300 ML IVPB SCH ×2 (10:00→21:00)
[2021-09-08 11:27] LABS: SARS-CoV-2 PCR by NAA Not Detected (NotDetected)
[2021-09-08 12:32] VITALS: BP 118/57; TEMP 97.6
== END 2021-09-08 16:46 | disposition home or self-care (01) ==
LOC: ERS 16:10 → MSONC 17:57
PROVIDERS: ADMIT Internal Medicine; ATTEND Internal Medicine
DX: A41.9 Sepsis, unspecified organism (principal); L02.416 Cutaneous abscess of left lower limb; D61.818 Other pancytopenia; C56.9 Malignant neoplasm of unspecified ovary; I50.22 Chronic systolic (congestive) heart failure; I25.10 Atherosclerotic heart disease of native coronary artery without angina pectoris; G62.9 Polyneuropathy, unspecified; M79.7 Fibromyalgia; Z86.74 Personal history of sudden cardiac arrest; Z87.891 Personal history of nicotine dependence; Z79.1 Long term (current) use of non-steroidal anti-inflammatories (NSAID); Z79.82 Long term (current) use of aspirin; Z79.899 Other long term (current) drug therapy; Z88.8 Allergy status to other drugs, medicaments and biological substances; Z95.1 Presence of aortocoronary bypass graft; Z20.822 Contact with and (suspected) exposure to COVID-19
CPT/HCPCS: 10061; 36415; 80048; 80053; 83605; 83735; 85025; 85610; 85730; 87040; 87070; 87077; 87205; 93005; 94760; 96365; 96366; 96367; 96368; 96375; G0378; J0692; J2001; J2270; J3370; J3475; J3490; J7050; U0003; U0005

== ENCOUNTER 2021-09-22 09:27 | Outpatient (CLI) | payer BC | END 2021-09-22 09:28 | disposition home or self-care (01) | LOC: CT 09:27 | PROVIDERS: ATTEND Internal Medicine Hematology & Oncology | DX: C56.2 Malignant neoplasm of left ovary (principal); R59.0 Localized enlarged lymph nodes; Z90.710 Acquired absence of both cervix and uterus | CPT/HCPCS: 74177 ==

== ENCOUNTER 2022-02-06 08:04 | Outpatient (CLI) | payer BC ==
[2022-02-06] MEDS ORDERED: Iopamidol 370 76% 100 ML VIAL ONE (14:51)
== END 2022-02-06 08:05 | disposition home or self-care (01) ==
LOC: CT 08:04
PROVIDERS: ATTEND Internal Medicine Hematology & Oncology
DX: C56.2 Malignant neoplasm of left ovary (principal); R59.0 Localized enlarged lymph nodes; Z79.899 Other long term (current) drug therapy
CPT/HCPCS: 74177; Q9967

== ENCOUNTER 2022-02-17 10:06 | Outpatient (CLI) | payer BC | END 2022-02-17 10:07 | disposition home or self-care (01) | LOC: BICMAMMO 10:06 | PROVIDERS: ATTEND Internal Medicine | DX: Z12.31 Encounter for screening mammogram for malignant neoplasm of breast (principal); Z85.43 Personal history of malignant neoplasm of ovary | CPT/HCPCS: 77063; 77067 ==

== ENCOUNTER 2022-03-28 14:03 | Outpatient (CLI) | payer BC | END 2022-03-28 14:04 | disposition home or self-care (01) | LOC: BICCT 14:03 | PROVIDERS: ATTEND Internal Medicine Hematology & Oncology | DX: C56.9 Malignant neoplasm of unspecified ovary (principal) | CPT/HCPCS: 74177; Q9967 ==

== ENCOUNTER 2022-08-02 11:03 | Day surgery (SDC) | payer BC ==
[2022-08-02] MEDS ORDERED: diphenhydrAMINE 25 MG CAP ONE (11:33)
[2022-08-02] MEDS ORDERED: Acetaminophen 500 MG TAB ONE (11:33)
[2022-08-02] MEDS ORDERED: diphenhydrAMINE 25 MG CAP PO SCH (12:30)
[2022-08-02] MEDS ORDERED: Acetaminophen 500 MG TAB PO SCH (12:30)
[2022-08-02 14:51] VITALS: BP 121/58; TEMP 98.1
== END 2022-08-02 14:50 | disposition home or self-care (01) ==
LOC: ONC/OP 11:03
PROVIDERS: ATTEND Nurse Practitioner Family
PROC: 30233N1 Transfusion of Nonautologous Red Blood Cells into Peripheral Vein, Percutaneous Approach (ICD-10-PCS; principal; 2022-08-02)
DX: D64.9 Anemia, unspecified (principal); D69.6 Thrombocytopenia, unspecified; Z88.8 Allergy status to other drugs, medicaments and biological substances
CPT/HCPCS: 36430; 86850; 86900; 86901; J1642; P9016

== ENCOUNTER 2023-08-28 09:56 | Emergency (ER) | payer BC ==
[2023-08-28] MEDS ORDERED: Ondansetron PF 4 MG/2 ML Vial ONE (10:31)
[2023-08-28] MEDS ORDERED: Morphine 4 MG/ML VIAL ONE (10:31)
[2023-08-28 10:42] LABS: #Eosinphils 0.1 thou/uL (0.0-0.7); #Neutrophils 4.9 thou/uL (1.40-6.50); %Basophils 0.2 % (0.0-1.0); %Eosinophils 0.7 % (0.0-10.0); %Lymphocytes 33.4 % (21.0-51.0); %Monocytes 11.4 % (0.0-10.0); %Neutrophils 53.9 % (42.0-75.0); Hemoglobin 13.3 g/dL (12.0-16.0); Mean Corpuscular HGB CONC 32.4 g/dL (32.0-36.0); Mean Corpuscular Hemoglobin 33.8 pg (27.0-31.0); Mean Corpuscular Volume 104.1 fl (78.0-98.0); Mean Platelet Volume 10.9 fL (7.4-10.4); RBC Distribution Width 13.1 % (11.5-14.5); Red Blood Cell (RBC) Count 3.94 mill/uL (4.20-5.40)
[2023-08-28 11:03] LABS: ALT (SGPT) 22 U/L (8-55); AST (SGOT) 34 U/L (5-34); Albumin 3.9 g/dL (3.5-5.0); Alkaline Phosphatase 148 U/L (40-110); Anion Gap 15 mmol/L (10-20); BUN (Urea Nitrogen) 34 mg/dL (9.8-20.1); Bilirubin, Total 0.9 mg/dL (0.2-1.2); Calc. Creatinine Clearance 0 mL/min (70-130); Calcium 9.2 mg/dL (7.8-10.44); Carbon Dioxide 16 mmol/L (22-29); Chloride 109 mmol/L (98-107); Estimated GFR 65; Globulin 4.3 g/dL (2.4-3.5); Glucose 106 mg/dL (70-105); Lipase 85 U/L (8-78); Platelet Count 50 10x3/uL (130-400); Potassium 3.7 mmol/L (3.5-5.1); Protein, Total 8.2 g/dL (6.0-8.3); Sodium 136 mmol/L (136-145)
[2023-08-28 11:05] LABS: Troponin I Less than 0.010 ng/mL (< 0.028)
[2023-08-28] MEDS ORDERED: Iopamidol-370 76% 500 ML MDV (1 ML CHARGE) ONE ×2 (11:16→11:18)
[2023-08-28 12:16] LABS: CellaVision Operator ID LAB.GE; Macrocytosis SLIGHT = 6-15 cells HPF (0-5); Platelet Adequacy Comment Platelets Decreased; Polychromasia SLIGHT = 2-3 cells HPF (0-2)
[2023-08-28] MEDS ORDERED: Morphine 2 MG/ML VIAL ONE (13:40)
[2023-08-28 13:47] LABS: Troponin I Less than 0.010 ng/mL (< 0.028)
[2023-08-28 14:45] LABS: Bacteria/HPF None Seen HPF (None Seen); Bilirubin Negative (Negative); Blood, Urine Trace (Negative); CAUTI Indications for Culture Pelvic or flank pain; Clarity Clear (Clear); Glucose, Urine (Dipstick) Normal (Negative); Ketone, Urine Negative (Negative); Leukocyte Negative Leu/uL (Negative); Nitrite Negative (Negative); Protein, Urine (Dipstick) 30 mg/dL (Neg-Trace); RBC/HPF 0-3 HPF (0-3); Specific Gravity, Urine 1.048 (1.002-1.036); Urobilinogen Normal mg/dL (Less than 2); WBC/HPF 0-3 HPF (0-3)
[2023-08-28 14:46] LABS: Urine Culture Reflex No No
== END 2023-08-28 14:32 | disposition home or self-care (01) ==
LOC: ERS 09:56
DX: R07.9 Chest pain, unspecified (principal); R10.32 Left lower quadrant pain; Z87.891 Personal history of nicotine dependence
CPT/HCPCS: 36415; 71045; 74177; 80053; 81001; 83605; 83690; 84484; 85025; 93005; 96361; 96374; 96375; 96376; J2270; J2272; J2405; Q9967

== ENCOUNTER 2023-12-07 07:56 | Outpatient (CLI) | payer BC ==
[2023-12-07] MEDS ORDERED: Iopamidol 370 76% 100 ML VIAL ONE (12:48)
== END 2023-12-07 07:57 | disposition home or self-care (01) ==
LOC: BICCT 07:56
PROVIDERS: ATTEND Internal Medicine Hematology & Oncology
DX: C56.2 Malignant neoplasm of left ovary (principal); R18.8 Other ascites; R16.0 Hepatomegaly, not elsewhere classified; R59.0 Localized enlarged lymph nodes
CPT/HCPCS: 74177

== ENCOUNTER 2024-01-08 19:30 | Inpatient (IN) | payer BC ==
[2024-01-08 22:43] VITALS: BMI 26.0
[2024-01-09 05:08] LABS: #Basophils Less than 0.03 10x3/uL (0.0-0.2); %Eosinophils 2.6 % (0.0-10.0); %Lymphocytes 47.1 % (21.0-51.0); Hematocrit 24.7 % (36.0-47.0); Hemoglobin 7.5 g/dL (12.0-16.0); Mean Corpuscular HGB CONC 30.4 g/dL (32.0-36.0); Mean Corpuscular Hemoglobin 34.4 pg (27.0-31.0); Mean Corpuscular Volume 113.3 fL (78.0-98.0); Mean Platelet Volume 10.5 fL (7.4-10.4); Platelet Count 105 10x3/uL (130-400); RBC Distribution Width 15.2 % (11.5-14.5); Red Blood Cell (RBC) Count 2.18 mill/uL (4.20-5.40)
[2024-01-09 05:43] LABS: Macrocytosis SLIGHT = 6-15 cells HPF (0-5); Platelet Adequacy Comment Platelets Decreased; Polychromasia SLIGHT = 2-3 cells HPF (0-2)
[2024-01-09 05:49] LABS: Anion Gap 10 mmol/L (10-20); Globulin 3.3 g/dL (2.4-3.5)
[2024-01-09 05:53] LABS: ALT (SGPT) 12 U/L (8-55); AST (SGOT) 26 U/L (5-34); Albumin 2.3 g/dL (3.5-5.0); Alkaline Phosphatase 87 U/L (40-110); BUN (Urea Nitrogen) 9 mg/dL (9.8-20.1); Bilirubin, Total 0.3 mg/dL (0.2-1.2); Calc. Creatinine Clearance 91 mL/min (70-130); Carbon Dioxide 20 mmol/L (22-29); Chloride 110 mmol/L (98-107); Estimated GFR 102; Glucose 66 mg/dL (70-105); Potassium 3.4 mmol/L (3.5-5.1); Protein, Total 5.6 g/dL (6.0-8.3); Sodium 137 mmol/L (136-145)
[2024-01-09 10:45] VITALS: BMI 26.0
[2024-01-09 21:59] LABS: BF Color Red; Body Fluid Source Ascites Body Fluid; Clarity Cloudy/Turbid (Clear); Tube # EDTA
[2024-01-09 22:20] LABS: RBC Count-Automated (BF) 173135 /cu.mm; WBC/Nucleated-Auto (BF) 634 /cu.mm
[2024-01-09 22:40] LABS: BF Segmented Neutrophils 25 %; Cell Count Non Hematic 61 %; Lymphocytes 14 %
[2024-01-10 11:23] VITALS: BP 99/61; TEMP 98.3
== END 2024-01-10 11:48 | disposition home or self-care (01) | DRG 755 ==
LOC: INTOOBSV 20:33 → MSONC 20:33 → OBSVTOIN 01-09 02:49
PROVIDERS: ADMIT Family Medicine; ATTEND Hospitalist
PROC: 0W9G3ZZ Drainage of Peritoneal Cavity, Percutaneous Approach (ICD-10-PCS; principal; 2024-01-09)
DX: C56.9 Malignant neoplasm of unspecified ovary (principal); R18.0 Malignant ascites; I25.10 Atherosclerotic heart disease of native coronary artery without angina pectoris; G62.9 Polyneuropathy, unspecified; F41.9 Anxiety disorder, unspecified; F31.9 Bipolar disorder, unspecified; G89.29 Other chronic pain; Z90.710 Acquired absence of both cervix and uterus; Z87.891 Personal history of nicotine dependence; R30.0 Dysuria
CPT/HCPCS: 36415; 49083; 71045; 74177; 80053; 83605; 83690; 83735; 83880; 84157; 84484; 85025; 85060; 85610; 85730; 86850; 86900; 86901; 87040; 87070; 87205; 89051; 93005; 96361; 96365; 96375; 96376; G0378; J0696; J2270; J2405; J3010; J3490; Q9967

== ENCOUNTER 2024-03-13 14:06 | Emergency (ER) | payer BC ==
[2024-03-13] MEDS ORDERED: Ondansetron ODT 4 MG TAB ONE (14:29)
[2024-03-13 15:10] LABS: #Basophils Less than 0.03 10x3/uL (0.0-0.2); %Basophils 0.1 % (0.0-1.0); %Eosinophils 0.6 % (0.0-10.0); %Monocytes 9.5 % (0.0-10.0); %Neutrophils 55.9 % (42.0-75.0); Hematocrit 33.5 % (36.0-47.0); Hemoglobin 10.5 g/dL (12.0-16.0); Mean Corpuscular HGB CONC 31.3 g/dL (32.0-36.0); Mean Corpuscular Hemoglobin 33.4 pg (27.0-31.0); Mean Corpuscular Volume 106.7 fL (78.0-98.0); Mean Platelet Volume 10.2 fL (7.4-10.4); Platelet Count 227 10x3/uL (130-400); RBC Distribution Width 14.9 % (11.5-14.5); Red Blood Cell (RBC) Count 3.14 mill/uL (4.20-5.40)
[2024-03-13 15:28] LABS: ALT (SGPT) 23 U/L (8-55); AST (SGOT) 42 U/L (5-34); Albumin 2.3 g/dL (3.5-5.0); Alkaline Phosphatase 161 U/L (40-110); Anion Gap 14 mmol/L (10-20); BUN (Urea Nitrogen) 35 mg/dL (9.8-20.1); Bilirubin, Total 0.5 mg/dL (0.2-1.2); Calc. Creatinine Clearance 0 mL/min (70-130); Calcium 8.4 mg/dL (7.8-10.44); Carbon Dioxide 19 mmol/L (22-29); Chloride 100 mmol/L (98-107); Estimated GFR 67; Globulin 4.1 g/dL (2.4-3.5); Glucose 95 mg/dL (70-105); Lipase 69 U/L (8-78); Magnesium 1.8 mg/dL (1.6-2.6); Potassium 3.4 mmol/L (3.5-5.1); Protein, Total 6.4 g/dL (6.0-8.3); Sodium 130 mmol/L (136-145)
[2024-03-13 15:31] LABS: Troponin I Less than 0.010 ng/mL (< 0.028)
== END 2024-03-13 17:43 | disposition home or self-care (01) ==
LOC: ERS 14:06
DX: R53.1 Weakness (principal); C56.9 Malignant neoplasm of unspecified ovary; Z87.891 Personal history of nicotine dependence
CPT/HCPCS: 36415; 71045; 80053; 83605; 83690; 83735; 83880; 84484; 85025; 93005; Q0162

== ENCOUNTER 2024-03-17 20:05 | Inpatient (IN) | payer BC ==
[~2024-03-17 20:05] MED LIST changes: -Iopamidol-370 76% 500 ML 1 ML ONE; +Iopamidol-370 76% 500 ML MDV (1 ML CHARGE) ONE
[2024-03-17 20:38] LABS: Bacteria/HPF None Seen HPF (None Seen); Bilirubin 1+ (Negative); Blood, Urine Negative (Negative); CAUTI Indications for Culture Pelvic or flank pain; Clarity Clear (Clear); Glucose, Urine (Dipstick) Normal (Negative); Ketone, Urine 60 mg/dL (Negative); Leukocyte Negative Leu/uL (Negative); Nitrite Negative (Negative); Protein, Urine (Dipstick) 20 mg/dL (Neg-Trace); RBC/HPF 0-3 HPF (0-3); Specific Gravity, Urine 1.021 (1.002-1.036); Squamous Epithelial 0-3 HPF (0-3); Urobilinogen 3 mg/dL (Less than 2); WBC/HPF 0-3 HPF (0-3); pH, Urine 5.5 (5.0-9.0)
[2024-03-17 20:39] LABS: Urine Culture Reflex No No
[2024-03-17] MEDS ORDERED: Pantoprazole 40 MG VIAL ONE (20:51)
[2024-03-17] MEDS ORDERED: Ondansetron PF 4 MG/2 ML Vial ONE (20:51)
[2024-03-17] MEDS ORDERED: fentaNYL 50 mcg/mL 1 mL Vial ONE (20:51)
[2024-03-17 20:52] LABS: #Basophils Less than 0.03 10x3/uL (0.0-0.2); #Eosinphils Less than 0.03 10x3/uL (0.0-0.7); %Basophils 0.1 % (0.0-1.0); %Eosinophils 0.1 % (0.0-10.0); %Lymphocytes 29.5 % (21.0-51.0); %Monocytes 9.1 % (0.0-10.0); %Neutrophils 60.4 % (42.0-75.0); Hemoglobin 10.7 g/dL (12.0-16.0); Mean Corpuscular HGB CONC 32.4 g/dL (32.0-36.0); Mean Corpuscular Hemoglobin 33.6 pg (27.0-31.0); Mean Corpuscular Volume 103.8 fL (78.0-98.0); Mean Platelet Volume 10.2 fL (7.4-10.4); Platelet Count 274 10x3/uL (130-400); RBC Distribution Width 15.3 % (11.5-14.5); Red Blood Cell (RBC) Count 3.18 mill/uL (4.20-5.40)
[2024-03-17 21:05] LABS: ALT (SGPT) 30 U/L (8-55); AST (SGOT) 47 U/L (5-34); Albumin 2.3 g/dL (3.5-5.0); Alkaline Phosphatase 190 U/L (40-110); Anion Gap 20 mmol/L (10-20); BUN (Urea Nitrogen) 42 mg/dL (9.8-20.1); Bilirubin, Total 0.5 mg/dL (0.2-1.2); CK (CPK) 24 U/L (29-168); Calc. Creatinine Clearance 0 mL/min (70-130); Calcium 8.6 mg/dL (7.8-10.44); Carbon Dioxide 19 mmol/L (22-29); Chloride 96 mmol/L (98-107); Estimated GFR 59; Globulin 4.4 g/dL (2.4-3.5); Glucose 86 mg/dL (70-105); Lipase 67 U/L (8-78); Potassium 3.8 mmol/L (3.5-5.1); Protein, Total 6.7 g/dL (6.0-8.3); Sodium 131 mmol/L (136-145)
[2024-03-17 21:10] LABS: Troponin I 0.013 ng/mL (< 0.028)
[2024-03-17] MEDS ORDERED: Ondansetron ODT 4 MG TAB PO PRN (22:53)
[2024-03-17] MEDS ORDERED: Acetaminophen 325 MG TAB PO PRN (22:53)
[2024-03-17] MEDS ORDERED: Morphine 2 MG/ML VIAL SLOW IVP PRN (23:31)
[2024-03-18 00:33] VITALS: BMI 22.0
[2024-03-18] MEDS: Sodium Chloride 0.9% 1,000 ML IV SCH (00:53)
[2024-03-18] MEDS: HYDROcodone/Acetaminophen 5/325 mg Tablet PO PRN (00:56)
[2024-03-18] MEDS ORDERED: Sodium Chloride 0.9% 1,000 ML IV SCH (01:00)
[2024-03-18 04:55] LABS: #Basophils Less than 0.03 10x3/uL (0.0-0.2); #Eosinphils Less than 0.03 10x3/uL (0.0-0.7); %Eosinophils 0.3 % (0.0-10.0); %Lymphocytes 31.6 % (21.0-51.0); %Monocytes 12.5 % (0.0-10.0); %Neutrophils 54.8 % (42.0-75.0); Hematocrit 27.3 % (36.0-47.0); Hemoglobin 8.6 g/dL (12.0-16.0); Mean Corpuscular HGB CONC 31.5 g/dL (32.0-36.0); Mean Corpuscular Volume 107.9 fL (78.0-98.0); Mean Platelet Volume 10.1 fL (7.4-10.4); Platelet Count 189 10x3/uL (130-400); RBC Distribution Width 15.4 % (11.5-14.5); Red Blood Cell (RBC) Count 2.53 mill/uL (4.20-5.40)
[2024-03-18 05:15] LABS: Anion Gap 18 mmol/L (10-20); BUN (Urea Nitrogen) 36 mg/dL (9.8-20.1); Calc. Creatinine Clearance 59 mL/min (70-130); Calcium 7.8 mg/dL (7.8-10.44); Carbon Dioxide 17 mmol/L (22-29); Chloride 103 mmol/L (98-107); Estimated GFR 80; Glucose 72 mg/dL (70-105); Potassium 4.6 mmol/L (3.5-5.1); Sodium 133 mmol/L (136-145)
[2024-03-18 08:47] LABS: RBC Count-Automated (BF) 56630 /cu.mm; WBC/Nucleated-Auto (BF) 1158 /cu.mm
[2024-03-18 08:51] LABS: BF Color Red; Body Fluid Source Ascites Body Fluid; Clarity Cloudy/Turbid (Clear); Tube # EDTA
[2024-03-18] MEDS: Pantoprazole 40 MG VIAL IVP SCH (09:18)
[2024-03-18] MEDS: Ondansetron PF 4 MG/2 ML Vial IVP PRN (09:24)
[2024-03-18 09:37] LABS: INR-International Normal Ratio 1.1; PTT 29.7 sec (22.9-36.1); Prothrombin Time 13.8 sec (12.0-14.7)
[2024-03-18 09:43] LABS: BF Segmented Neutrophils 54 %; Cell Count Non Hematic 37 %; Lymphocytes 9 %
[2024-03-18 12:26] VITALS: BMI 22.0
[2024-03-18] MEDS ORDERED: Sodium Bicarbonate 2.5 MEQ/5 ML SDV ONE (12:43)
[2024-03-18] MEDS ORDERED: Lidocaine 1% PF 5 ML VIAL ONE (12:43)
[2024-03-18] MEDS: Lactulose 20 GM (30 mL) UDCUP PO SCH (16:05)
[2024-03-18] MEDS: Bisacodyl 10 MG SUPP PR SCH (16:05)
[2024-03-18] MEDS: Mineral Oil ENEMA PR SCH (16:06)
[2024-03-18] MEDS ORDERED: Prochlorperazine Edisylate 10 MG in Sodium Chloride 0.9% 50 ML IVPB PRN (17:49)
[2024-03-18] MEDS: Ciprofloxacin Lactate/D5W 400 MG in Premix 1 BAG IVPB SCH (20:51)
[2024-03-19 04:53] LABS: #Basophils Less than 0.03 10x3/uL (0.0-0.2); %Basophils 0.2 % (0.0-1.0); %Eosinophils 0.6 % (0.0-10.0); %Lymphocytes 31.2 % (21.0-51.0); %Monocytes 10.6 % (0.0-10.0); %Neutrophils 56.6 % (42.0-75.0); Hematocrit 23.4 % (36.0-47.0); Hemoglobin 7.4 g/dL (12.0-16.0); Mean Corpuscular HGB CONC 31.6 g/dL (32.0-36.0); Mean Corpuscular Hemoglobin 33.3 pg (27.0-31.0); Mean Corpuscular Volume 105.4 fL (78.0-98.0); Mean Platelet Volume 9.5 fL (7.4-10.4); Platelet Count 141 10x3/uL (130-400); RBC Distribution Width 15.6 % (11.5-14.5); Red Blood Cell (RBC) Count 2.22 mill/uL (4.20-5.40)
[2024-03-19 05:26] LABS: Anion Gap 13 mmol/L (10-20); BUN (Urea Nitrogen) 23 mg/dL (9.8-20.1); Calc. Creatinine Clearance 69 mL/min (70-130); Calcium 7.4 mg/dL (7.8-10.44); Carbon Dioxide 18 mmol/L (22-29); Chloride 108 mmol/L (98-107); Estimated GFR 96; Glucose 68 mg/dL (70-105); Potassium 3.7 mmol/L (3.5-5.1); Sodium 135 mmol/L (136-145)
[2024-03-19] MEDS ORDERED: Iopamidol 0 ML ONE (12:45)
[2024-03-19] MEDS: Dextrose 5% in Water 1,000 ML IV SCH (13:22)
[2024-03-19] MEDS: Scopolamine 1 mg/72 hour Patch TD SCH (15:04)
[2024-03-19] MEDS: Metoclopramide HCl 10 MG (2 mL) VIAL IVP SCH (15:34)
[2024-03-19] MEDS: Sodium Bicarbonate Tab 325 MG TAB PO SCH (15:48)
[2024-03-19] MEDS: Bisacodyl 10 MG SUPP PR SCH (18:51)
[2024-03-19] MEDS: Senokot S 8.6-50 MG TAB PO SCH (21:49)
[2024-03-19] MEDS: Lactulose 20 GM (30 mL) UDCUP PO SCH (21:50)
[2024-03-19] MEDS: Polyethylene Glycol 3350 17 GM Packet PO SCH (21:51)
[2024-03-20 08:36] LABS: #Basophils Less than 0.03 10x3/uL (0.0-0.2); #Eosinphils Less than 0.03 10x3/uL (0.0-0.7); %Eosinophils 0.4 % (0.0-10.0); %Lymphocytes 30.3 % (21.0-51.0); %Monocytes 8.7 % (0.0-10.0); Hematocrit 25.2 % (36.0-47.0); Hemoglobin 7.9 g/dL (12.0-16.0); Mean Corpuscular HGB CONC 31.3 g/dL (32.0-36.0); Mean Corpuscular Hemoglobin 33.5 pg (27.0-31.0); Mean Corpuscular Volume 106.8 fL (78.0-98.0); Platelet Count 157 10x3/uL (130-400); RBC Distribution Width 15.9 % (11.5-14.5); Red Blood Cell (RBC) Count 2.36 mill/uL (4.20-5.40)
[2024-03-20 08:51] LABS: Anion Gap 14 mmol/L (10-20); BUN (Urea Nitrogen) 15 mg/dL (9.8-20.1); Calc. Creatinine Clearance 71 mL/min (70-130); Calcium 7.6 mg/dL (7.8-10.44); Carbon Dioxide 19 mmol/L (22-29); Chloride 106 mmol/L (98-107); Estimated GFR 99; Glucose 92 mg/dL (70-105); Potassium 3.1 mmol/L (3.5-5.1); Sodium 136 mmol/L (136-145)
[2024-03-20] MEDS ORDERED: fentaNYL 50 mcg/mL 1 mL Vial ONE (12:08)
[2024-03-20] MEDS ORDERED: PROPOFOL 20 ML ONE (12:08)
[2024-03-20] MEDS ORDERED: Ketamine In 0.9 % NaCl 50 MG/5 ML SYRINGE ONE (12:08)
[2024-03-20] MEDS ORDERED: Promethazine HCl 25 MG/ML VIAL IM PRN (12:48)
[2024-03-20] MEDS ORDERED: Ondansetron HCl/PF 4 MG/2 ML Vial IVP PRN (12:48)
[2024-03-20 13:42] VITALS: BP 116/76; TEMP 96.8
[2024-03-20] MEDS ORDERED: Polyethylene Glycol 3350 17 GM Packet PO SCH (21:00)
== END 2024-03-20 17:45 | disposition home or self-care (01) | DRG 374 ==
LOC: ERS 20:05 → MSONC 22:44 → OBSVTOIN 03-19 10:54
PROVIDERS: ADMIT Student in an Organized Health Care Education/Training Program; ATTEND Hospitalist
PROC: 0W9G3ZZ Drainage of Peritoneal Cavity, Percutaneous Approach (ICD-10-PCS; principal; 2024-03-18)
PROC: 0DJ08ZZ Inspection of Upper Intestinal Tract, Via Natural or Artificial Opening Endoscopic (ICD-10-PCS; 2024-03-20)
DX: C78.6 Secondary malignant neoplasm of retroperitoneum and peritoneum (principal); K65.9 Peritonitis, unspecified; K92.2 Gastrointestinal hemorrhage, unspecified; C56.9 Malignant neoplasm of unspecified ovary; I50.32 Chronic diastolic (congestive) heart failure; E87.20 Acidosis, unspecified; R18.0 Malignant ascites; I25.10 Atherosclerotic heart disease of native coronary artery without angina pectoris; G62.9 Polyneuropathy, unspecified; K59.00 Constipation, unspecified; B96.89 Other specified bacterial agents as the cause of diseases classified elsewhere; F41.8 Other specified anxiety disorders; F31.9 Bipolar disorder, unspecified; D63.8 Anemia in other chronic diseases classified elsewhere; Z88.8 Allergy status to other drugs, medicaments and biological substances; Z79.82 Long term (current) use of aspirin; Z79.899 Other long term (current) drug therapy; Z98.891 History of uterine scar from previous surgery; Z90.710 Acquired absence of both cervix and uterus; Z95.1 Presence of aortocoronary bypass graft; Z87.891 Personal history of nicotine dependence
CPT/HCPCS: 36415; 49083; 71045; 74177; 76000; 80048; 80053; 81001; 82274; 82550; 82945; 83605; 83690; 84145; 84157; 84484; 85025; 85060; 85610; 85730; 86850; 86900; 86901; 87040; 87070; 87205; 89051; 93005; C9113; J0744; J2405; J2704; J2765; J3010; J3490; J7050; J7070; Q9967